=== PATIENT | male | born 1935 | race Caucasian/White ===

== ENCOUNTER 2016-05-13 15:11 | Emergency (ER) | payer OTHER, BC ==
[2016-05-13 15:21] VITALS: BP 120/60; PULSE 75; TEMP 97.6; BMI 26.7
--- NOTE | 2016-05-13 15:30 | PDOC ---
History of Present Illness - General History Source: Patient Exam Limitations: No Limitations <Deonte Johnson - Last Filed: 05/13/16 18:02> - General History Source: Patient Exam Limitations: No Limitations - History of Present Illness Initial Comments: 05/13/16 15:33 The patient is an 81 year old male with a significant past medical history of HTN, HLD, CAD, LA, 3 vessel CABG, pacemaker/defibrillator who presents to the Emergency Department sent by PCP with hematuria for one week. Patient reports his urine has dark red blood with clots. He reports associated groin pain. He states he stopped taking his coumadin, and his urine returned to normal after two days, but once he began taking coumadin again he experienced hematuria again. He reports heavy lifting last week. He reports recent weight loss. He reports cigarette smoking. He denies history of kidney stones. He denies back pain, abdominal pain, dysuria. He denies chest pain, SOB. He denies fever, chills, nausea, vomiting, diarrhea. PCP: Dr. Kana Davis Urologist: Dr. Hernandez Cuellar <Alnana Bermudez A - Last Filed: 05/13/16 18:14> - General Chief Complaint: Hematuria Stated Complaint: hematuria Time Seen by Provider: 05/13/16 15:13 Past History - Past Medical History Cardiac Disorders: Yes (AFIB,LA) GI Disorders: Yes Disorders: Yes HTN: Yes Hypercholesterolemia: Yes - Surgical History Cardiac Surgery: Yes (triple bypass x 2009,defib 2012.) - Psycho/Social/Smoking Cessation Hx Anxiety: No Suicidal Ideation: No Smoking History: Current every day smoker Number of Cigarettes Smoked Daily: 3 Information on smoking cessation initiated: No Substance Use Type: None <Deonte Johnson - Last Filed: 05/13/16 18:02> <Alanna Bermudez - Last Filed: 05/13/16 18:14> - Past Medical History Allergies/Adverse Reactions: Allergies Allergy/AdvReac Type Severity Reaction Status Date / Time No Known Allergies Allergy Verified 05/13/16 15:13 Home Medications: Ambulatory Orders Amiodarone HCl 200 mg PO DAILY 05/13/16 Amlodipine Besylate [Norvasc -] 10 mg PO DAILY 05/13/16 Aspirin [ASA -] 81 mg PO DAILY 05/13/16 Atorvastatin Ca [Lipitor] 40 mg PO HS 05/13/16 Finasteride [Proscar -] 5 mg PO DAILY 05/13/16 Metoprolol Succinate [Toprol Xl] 150 mg PO DAILY 05/13/16 Omeprazole 40 mg PO DAILY 05/13/16 Ramipril 10 mg PO DAILY 05/13/16 Sulfamethoxazole/Trimethoprim [Bactrim Ds -] 1 tab PO BID #20 tablet 05/13/16 Tamsulosin HCl [Flomax] 0.8 mg PO DAILY 05/13/16 Warfarin Sodium [Coumadin] 4 mg PO DAILY 05/13/16 Review of Systems - Review of Systems Able to Perform ROS?: Yes Comments:: 05/13/16 15:33 GENERAL/CONSTITUTIONAL: No fever or chills. No weakness. HEAD, EYES, EARS, NOSE AND THROAT: No change in vision. No ear pain or discharge. No sore throat. CARDIOVASCULAR: No chest pain or shortness of breath. RESPIRATORY: No cough, wheezing, or hemoptysis. GASTROINTESTINAL: No nausea, vomiting, diarrhea or constipation. GENITOURINARY: + hematuria, groin pain. No dysuria, frequency. MUSCULOSKELETAL: No joint or muscle swelling or pain. No neck or back pain. SKIN: No rash NEUROLOGIC: No headache, vertigo, loss of consciousness, or change in strength/ sensation. ENDOCRINE: No increased thirst. No abnormal weight change. HEMATOLOGIC/LYMPHATIC: No anemia, easy bleeding, or history of blood clots. ALLERGIC/IMMUNOLOGIC: No hives or skin allergy. <Alanna Bermudez - Last Filed: 05/13/16 18:14> *Physical Exam - Vital Signs Last Vital Signs Temp Pulse Resp BP Pulse Ox 97.6 F 75 18 120/60 100 05/13/16 15:14 05/13/16 15:14 05/13/16 15:14 05/13/16 15:14 05/13/16 15:14 <Deonte Johnson - Last Filed: 05/13/16 18:02> - Vital Signs Last Vital Signs Temp Pulse Resp BP Pulse Ox 97.6 F 75 18 120/60 100 05/13/16 15:14 05/13/16 15:14 05/13/16 15:14 05/13/16 15:14 05/13/16 15:14 - Physical Exam Comments: 05/13/16 15:34 GENERAL: Awake, alert, and fully oriented, in no acute distress HEAD: No signs of trauma EYES: PERRLA, EOMI, sclera anicteric, conjunctiva clear ENT: Auricles normal inspection, hearing grossly normal, nares patent, oropharynx clear without exudates. Moist mucosa NECK: Normal ROM, supple, no lymphadenopathy, JVD, or masses LUNGS: Breath sounds equal, clear to auscultation bilaterally. No wheezes, and no crackles HEART: Pacemaker. Regular rate and rhythm, normal S1 and S2, no murmurs, rubs or gallops ABDOMEN: Soft, nontender, normoactive bowel sounds. No guarding, no rebound. No masses : uncircumcised, no testicular tenderness, no rash, no drainage EXTREMITIES: Normal range of motion, no edema. No clubbing or cyanosis. No cords, erythema, or tenderness NEUROLOGICAL: Cranial nerves II through XII grossly intact. Normal speech, normal gait SKIN: Warm, Dry, normal turgor, no rashes or lesions noted. <Alanna Bermudez - Last Filed: 05/13/16 18:14> ED Treatment Course - LABORATORY CBC & Chemistry Diagram: 05/13/16 15:40 05/13/16 15:40 <Deonte Johnson - Last Filed: 05/13/16 18:02> - LABORATORY CBC & Chemistry Diagram: 05/13/16 15:40 05/13/16 15:40 - RADIOLOGY Radiograph Interpretation: 05/13/16 17:54 CT of abdomen and pelvis without contrast Reported by: Dr. Isabelle Nuno Impression: There is no evidence of hydroureteronephrosis or ureteral stone, bilaterally. No filling defect within the pelvicalyceal system and ureter, laterally. Mild diffuse thickening of the urinary wall likely due to partial distension. Enlarged prostate gland with a nodular anterior contour causing extrinsic mass effect on the urinary bladder wall for which further evaluation is recommended. Bilateral renal cysts and small left parapelvic renal cysts. Tiny gallstones versus a small sludge layering posteriorly. 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 Old fracture in the right inferior pubic ramus with a healing fracture in the right transverse process of L2. <Alanna Bermudez - Last Filed: 05/13/16 18:14> Medical Decision Making - Medical Decision Making 05/13/16 15:45 A portion of this note was documented by scribe services under my direction. I have reviewed the details of the note, within reason, and agree with the documentation with the following case summary and management plan written by me. Patient treated in the ED. Nursing notes are reviewed and incorporated into the medical decision-making. Vital signs reviewed. Peripheral IV access obtained by the nurse, laboratory studies are drawn and sent, reviewed and interpreted by myself. Vital Signs Temp Pulse Resp BP Pulse Ox 97.6 F 75 18 120/60 100 05/13/16 15:14 05/13/16 15:14 05/13/16 15:14 05/13/16 15:14 05/13/16 15:14 81-year-old male with past medical history of hypertension, hyperlipidemia, coronary disease status post LA, 3 vessel CABG, stents, pacemaker/defibrillator , current smoker presents from Dr. Davis's office for intermittent hematuria for one week. The patient reports hematuria with blood clots. He is currently taking Coumadin for his heart. States that one week ago when he had the hematuria, the patient had stopped taking his Coumadin and notices much improved. However 3 days ago, the patient restart his Coumadin and noted worsening hematuria. He saw his primary care doctor today who sent the patient ER for CAT scan. Patient states he has lost 15 pounds in last several months. Concerns at this time is potential malignancy or neoplasm. We'll perform CT scan of the abdomen pelvis with IV contrast. Also within differential, though probably less likely, is infectious like cystitis, or renal colic. We'll contact patient's primary care doctor once results return. 05/13/16 17:57 CBC, BMP 05/13/16 15:40 05/13/16 15:40 CMP Sodium 132 mmol/L (136-145) L 05/13/16 15:40 Potassium 4.2 mmol/L (3.5-5.1) 05/13/16 15:40 Chloride 102 mmol/L (98-107) 05/13/16 15:40 Carbon Dioxide 26 mmol/L (22-28) 05/13/16 15:40 Anion Gap 4 (8-16) L 05/13/16 15:40 BUN 15 mg/dl (7-18) 05/13/16 15:40 Creatinine 1.3 mg/dl (0.6-1.3) 05/13/16 15:40 Creat Clearance w eGFR 52.85 (>60) 05/13/16 15:40 Random Glucose 134 mg/dl (74-106) H 05/13/16 15:40 Calcium 8.6 mg/dl (8.4-10.2) 05/13/16 15:40 Total Bilirubin 0.5 mg/dl (0.2-1.0) 05/13/16 15:40 AST 31 U/L (10-42) 05/13/16 15:40 ALT 20 U/L (10-40) 05/13/16 15:40 Alkaline Phosphatase 75 U/L (32-92) 05/13/16 15:40 Total Protein 6.5 g/dl (6.4-8.3) 05/13/16 15:40 Albumin 4.0 g/dl (3.5-5.0) 05/13/16 15:40 INR, PTT INR 2.64 (0.82-1.09) H 05/13/16 15:40 Urine Test Results Urine Color Red 05/13/16 15:59 Urine Appearance Bloody 05/13/16 15:59 Urine pH 6.5 (4.5-8) 05/13/16 15:59 Ur Specific [place] >= 1.030 (1.005-1.025) H 05/13/16 15:59 Urine Protein 3+ (NEGATIVE) H 05/13/16 15:59 Urine Glucose (UA) Negative (NEGATIVE) 05/13/16 15:59 Urine Ketones Trace (NEGATIVE) 05/13/16 15:59 Urine Blood 3+ (NEGATIVE) H 05/13/16 15:59 Urine Nitrite Negative (NEGATIVE) 05/13/16 15:59 Urine Bilirubin 1+ (NEGATIVE) H 05/13/16 15:59 Ur Leukocyte Esterase Negative (NEGATIVE) 05/13/16 15:59 Urine RBC Loaded /hpf (0-3) 05/13/16 15:59 Urine WBC 0-2 (3-5) 05/13/16 15:59 Urine Bacteria Moderate /hpf (NEGATIVE) 05/13/16 15:59 05/13/16 17:59 CAT scan reviewed. Mild diffuse thickening of the urinary bladder wall due to partial distention. Enlarged prostate gland with a nodular intercondylar causing extrinsic mass effect on the urinary bladder wall for which further evaluation is recommended. Bilateral renal cysts. The patient otherwise feels asymptomatic. I discussed the case with urologist Dr Cuellar. Requests that I initiate antibiotics for potential prostatitis. He is scheduling an urgent outpatient cystoscopy for the patient. I had discussed the results of the CAT scan to the patient regarding my findings. He agrees that he will follow with his urologist. Return precautions given including lightheadedness. We'll give Bactrim. Patient primary care doctor covering physician Dr. Ge informed of the details. I discussed the physical exam findings, ancillary test results and final diagnoses with the patient. I answered all of the patient's questions. The patient was satisfied with the care received and felt comfortable with the discharge plan and treatment plan. The patient will call their primary care physician within 24 hours to arrange follow-up and will return to the Emergency Department with any new, persistant or worsening symptoms. <Deonte Johnson - Last Filed: 05/13/16 18:02> *DC/Admit/Observation/Transfer - Discharge Dispostion Admit: No <Deonte Johnson - Last Filed: 05/13/16 18:02> - Attestations Scribe Attestion: 05/13/16 15:34 Documentation prepared by Alanna Bermudez, acting as manager medical affairs for Deonte Johnson MD. <Alanna Bermudez - Last Filed: 05/13/16 18:14> Diagnosis at time of Disposition: Hematuria - Discharge Dispostion Disposition: HOME Condition at time of disposition: Fair - Prescriptions Prescriptions: Sulfamethoxazole/Trimethoprim [Bactrim Ds -] 1 tab PO BID #20 tablet - Referrals Referrals: Hernandez Cuellar MD [Staff Physician] - Kana Davis MD [Staff Physician] - - Patient Instructions Printed Discharge Instructions: DI for Hematuria Additional Instructions: Please follow up with Dr. Cuellar. Call tomorrow to schedule an appointment. He will squeeze you in for an earleir appointment. Continue to monitor your INR levels Take the antibiotics (bactrim) every 12 hours your urine. If you feel lightheaded or feel like feinting, please return to the ER for further evaluation.
[2016-05-13 16:12] LABS: BILIRUBIN,TOTAL 0.5 mg/dl (0.2-1.0); CALCIUM 8.6 mg/dl (8.4-10.2); CREATININE 1.3 mg/dl (0.6-1.3); TOT PROT 6.5 g/dl (6.4-8.3)
[2016-05-13 16:14] LABS: INR 2.64 (0.82-1.09)
[2016-05-13 16:28] LABS: BASOPHIL 1.6 % (0-2.0); EOSINOPHIL 4.3 % (0-4.5); MCH 33.1 pg (25.7-33.7); MEAN CELL VOLUME 94.6 fl (80-96); MEAN PLT VOLUME 9.9 fl (7.5-11.1); NEUTROPHILS 70.6 % (42.8-82.8); PLATELET COUNT 186 K/MM3 (134-434); RDW 12.2 % (11.9-15.9); WHITE BLOOD COUNT 9.5 K/mm3 (4.0-10.0)
[2016-05-13 16:29] LABS: PH,URINE 6.5 (4.5-8); URINE BILIRUBIN 1+ (NEGATIVE); URINE GLUCOSE (UA) Negative (NEGATIVE); URINE KETONE Trace (NEGATIVE); URINE LEUK ESTERASE Negative (NEGATIVE); URINE NITRITE Negative (NEGATIVE); URINE UROBILINOGEN 1.0 E.U/dl (0.2-1.0)
[2016-05-13 16:30] LABS: URINE APPEARANCE BLOODY; URINE BLOOD 3+ (NEGATIVE); URINE COLOR RED; URINE PROTEIN 3+ (NEGATIVE)
[2016-05-13 16:35] LABS: URINE BACTERIA MODERATE /hpf (NEGATIVE); URINE RBC LOADED /hpf (0-3); URINE WBC 0-2 (3-5)
[2016-05-13] MEDS ORDERED: SULFAMETHOXAZOLE/TRIMETHOPRIM 800MG/160MG D.S. TABLET PO ONE (17:57)
[2016-05-13] MEDS ORDERED: SULFAMETHOXAZOLE/TRIMETHOPRIM 800MG/160MG D.S. TABLET ONE (18:09)
== END 2016-05-13 18:34 | disposition home or self-care (01) ==
LOC: FER 15:11
DX: R31.9 Hematuria, unspecified (principal); I10 Essential (primary) hypertension; E78.5 Hyperlipidemia, unspecified; I25.10 Atherosclerotic heart disease of native coronary artery without angina pectoris; I25.2 Old myocardial infarction; Z95.1 Presence of aortocoronary bypass graft; Z95.0 Presence of cardiac pacemaker; F17.210 Nicotine dependence, cigarettes, uncomplicated
CPT/HCPCS: 36415; 74177-TC; 80053; 81003; 81015; 85025; 85610; 85730; 86850; 86900; 86901; 87086; 99283-25

== ENCOUNTER 2021-08-19 20:11 | Inpatient (IN) | payer OTHER, BC ==
[2021-08-19 20:47] LABS: BASO % 1.1 % (0-2.0); HEMATOCRIT 24.5 % (35.4-49); HEMOGLOBIN 8.1 GM/dL (11.7-16.9); LYMPH % 0.9 % (8-40); MCHC 33.2 g/dl (32.0-35.9); MEAN CELL VOLUME 96.4 fl (80-96); MEAN PLT VOLUME 9.1 fl (7.5-11.1); MONO % 2.6 % (3.8-10.2); NEUT % 95.4 % (42.8-82.8); PLATELET COUNT 216 10^3/uL (134-434); RBC 2.54 M/mm3 (4.00-5.60); RDW 13.3 % (11.9-15.9); WHITE BLOOD COUNT 26.6 K/mm3 (4.0-10.0)
[2021-08-19 20:57] LABS: ACTIVATED PTT 54.7 SECONDS (25.2-36.5)
[2021-08-19 21:08] LABS: EPI CELLS 20 /uL (0-25.1); HYALINE CASTS 15 /uL (0-3.1); URINE APPEARANCE CLOUDY; URINE BACTERIA 4 /uL (0-1359); URINE BILIRUBIN 2+ (NEGATIVE); URINE COLOR DK YELLOW; URINE GLUCOSE (UA) NEGATIVE (NEGATIVE); URINE KETONE TRACE (NEGATIVE); URINE LEUK ESTERASE TRACE (NEGATIVE); URINE NITRITE NEGATIVE (NEGATIVE); URINE PROTEIN 1+ (NEGATIVE); URINE RBC 51 /uL (0-23.9); URINE WBC 10 /uL (0-25.8)
[2021-08-19 21:08] LABS: CALCIUM 8.6 mg/dL (8.5-10.1)
[2021-08-19 21:09] LABS: ALBUMIN 3.5 g/dl (3.4-5.0); BLOOD UREA NITROGEN 60.4 mg/dL (7-18); MAGNESIUM 2.6 mg/dL (1.8-2.4)
[2021-08-19 21:12] LABS: CREATININE 3.2 mg/dL (0.55-1.3)
[2021-08-19 21:14] LABS: BILIRUBIN,TOTAL 1.7 mg/dL (0.2-1); PROTHROMBIN TIME (PATIENT) 108.7 SEC (9.7-13.0); TOT PROT 6.3 g/dl (6.4-8.2)
[2021-08-19 21:15] LABS: INR 9.24 (0.83-1.09)
[2021-08-19 21:17] LABS: N-TERMINAL BNP 2707.8 pg/ml (5-450)
[2021-08-19 21:31] LABS: ANISOCYTOSIS 1+; MACROCYTOSIS 0
[2021-08-20] MEDS ORDERED: PHYTONADIONE 5 MG TABLET PO ONE (04:00)
[2021-08-20] MEDS ORDERED: LACTATED RINGERS SOLUTION 1,000 ML IV SCH ×2 (04:00→11:34)
[2021-08-20] MEDS ORDERED: VANCOMYCIN 1 GM in D5W (PRE-DOCKED) 1,000 MG/250 ML IVPB SCH (04:10)
[2021-08-20] MEDS ORDERED: PHYTONADIONE 10 MG/1 ML AMP IM ONE (04:36)
[2021-08-20] MEDS ORDERED: PHYTONADIONE 10 MG/1 ML AMP ONE (05:02)
[2021-08-20] MEDS ORDERED: PIPERACILLIN/TAZOB 2.25 GM 2.25 GM/50 ML BAG IVPB ONE ×2 (05:03→10:01)
[2021-08-20] MEDS ORDERED: VANCOMYCIN 1 GRAM (PRE-DOCKED) 1,000 MG/250 ML BAG IVPB ONE (05:03)
[2021-08-20] MEDS: PIPERACILLIN/TAZOB 2.25 GM 2.25 GM in DEXTROSE 5%-WATER - 50 ML IVPB SCH ×2 (05:09→10:21)
[2021-08-20] MEDS ORDERED: ALBUTEROL SO4 2.5/IPRATROPIUM 0.5 INH SOL 3 ML VIAL.NEB. NEB PRN (06:08)
[2021-08-20] MEDS: POLYETHYLENE GLYCOL (HEALTHYLAX) 3350 17 GM PACKET PO SCH ×3 (07:06→22:54)
[2021-08-20 08:00] LABS: HEMATOCRIT 25.4 % (35.4-49); HEMOGLOBIN 8.4 GM/dL (11.7-16.9); MCH 32.3 pg (25.7-33.7); MEAN CELL VOLUME 97.7 fl (80-96); MEAN PLT VOLUME 9.3 fl (7.5-11.1); PLATELET COUNT 252 10^3/uL (134-434); RDW 13.2 % (11.9-15.9)
[2021-08-20] MEDS ORDERED: ALBUTEROL SO4 2.5/IPRATROPIUM 0.5 INH SOL 3 ML VIAL.NEB. NEB ONE ×4 (08:06→11:59)
[2021-08-20] MEDS: INSULIN SLIDING SCALE (NOVOLOG) 1 VIAL SQ SCH ×4 (08:13→22:59)
[2021-08-20 08:17] LABS: WHITE BLOOD COUNT 31.5 K/mm3 (4.0-10.0)
[2021-08-20 08:39] LABS: PROTHROMBIN TIME (PATIENT) 124.9 SEC (9.7-13.0)
[2021-08-20 08:40] LABS: INR 10.6 (0.83-1.09)
[2021-08-20 08:56] LABS: CALCIUM 8.3 mg/dL (8.5-10.1)
[2021-08-20 08:57] LABS: ALBUMIN 3.3 g/dl (3.4-5.0); BLOOD UREA NITROGEN 65.3 mg/dL (7-18); MAGNESIUM 2.7 mg/dL (1.8-2.4)
[2021-08-20 09:00] LABS: CREATININE 3.1 mg/dL (0.55-1.3)
[2021-08-20 09:01] LABS: BILIRUBIN,TOTAL 2.4 mg/dL (0.2-1); TOT PROT 6.3 g/dl (6.4-8.2)
[2021-08-20 09:10] LABS: PHOSPHOROUS 4.6 mg/dL (2.5-4.9)
[2021-08-20 09:29] LABS: ANISOCYTOSIS 0; MACROCYTOSIS 0
[2021-08-20] MEDS ORDERED: BUDESONIDE/FORMETEROL FUMARATE 160/4.5 mcg INHALER IH SCH (10:00)
[2021-08-20] MEDS ORDERED: INSULIN (NOVOLOG) ASPART 100 UNITS/ML 10ML VIAL SQ ONE (10:35)
[2021-08-20] MEDS ORDERED: DEXTROSE 50%-WATER - 25 GM/50 ML VIAL IVPUSH ONE (10:35)
[2021-08-20 11:10] LABS: LACTIC ACID 5.1 mmol/L (0.4-2.0)
[2021-08-20] MEDS ORDERED: INSULIN REGULAR HUMAN 100 UNITS/ML *VIAL IVPUSH ONE (11:10)
[2021-08-20] MEDS ORDERED: LACTATED RINGERS SOLUTION 1,000 ML/1,000 ML INFUS.BAG IV STA (11:35)
[2021-08-20] MEDS ORDERED: DEXTROSE 50%-WATER 25 GM/50 ML DISP.SYRIN ONE (11:59)
[2021-08-20] MEDS ORDERED: INSULIN REGULAR HUMAN 100 UNITS/ML *VIAL ONE (12:30)
[2021-08-20 13:43] LABS: BILIRUBIN,DIRECT 0.7 mg/dL (0.0-0.2)
[2021-08-20 13:46] LABS: BILIRUBIN,TOTAL 2.4 mg/dL (0.2-1)
[2021-08-20] MEDS ORDERED: PHYTONADIONE 10 MG/1 ML AMP IVPB ONE ×2 (14:21→15:30)
[2021-08-20] MEDS ORDERED: PIPERACILLIN/TAZOBACTAM 2.25 GM VIAL IVPB ONE (17:27)
[2021-08-20] MEDS ORDERED: DEXTROSE 5%-WATER - 50 ML IVPB ONE (17:28)
[2021-08-20 17:39] LABS: LACTIC ACID 4.5 mmol/L (0.4-2.0)
[2021-08-20] MEDS ORDERED: PIPERACILLIN/TAZOB 2.25 GM 2.25 GM in DEXTROSE 5%-WATER - 50 ML IVPB SCH (18:00)
[2021-08-20 18:29] LABS: EPI CELLS 24 /uL (0-25.1); HYALINE CASTS 10 /uL (0-3.1); URINE APPEARANCE TURBID; URINE BACTERIA 6 /uL (0-1359); URINE BILIRUBIN 1+ (NEGATIVE); URINE COLOR DK YELLOW; URINE GLUCOSE (UA) NEGATIVE (NEGATIVE); URINE KETONE TRACE (NEGATIVE); URINE LEUK ESTERASE 1+ (NEGATIVE); URINE NITRITE NEGATIVE (NEGATIVE); URINE PROTEIN 1+ (NEGATIVE); URINE RBC 365 /uL (0-23.9); URINE WBC 59 /uL (0-25.8)
[2021-08-20] MEDS: LACTATED RINGERS SOLUTION 1,000 ML IV SCH ×2 (18:46→23:15)
[2021-08-20] MEDS: ALBUTEROL SO4 2.5/IPRATROPIUM 0.5 INH SOL 3 ML VIAL.NEB. NEB SCH ×2 (20:01→23:06)
[2021-08-20] MEDS ORDERED: NOREPINEPHRINE BITARTRATE 4 MG/4 ML ML IV ONE (21:13)
[2021-08-20] MEDS ORDERED: VASOPRESSIN 40 UNITS/100 ML BAG IV SCH (21:15)
[2021-08-20] MEDS: NOREPINEPHRINE BITARTRATE 16,000 MCG in SODIUM CHLORIDE 484 ML IV SCH (22:40)
[2021-08-20] MEDS: CHLORHEXIDINE GLUCONATE 4% CLEANSER FOR DECOLONIZATION TP SCH (23:15)
[2021-08-20] MEDS: MUPIROCIN 2% TOPICAL OINTMENT FOR DECOLONIZATION NS SCH (23:15)
[2021-08-20 23:31] LABS: BASO % 0.1 % (0-2.0); HEMATOCRIT 20.3 % (35.4-49); LYMPH % 2.1 % (8-40); MCH 32.4 pg (25.7-33.7); MCHC 33.5 g/dl (32.0-35.9); MEAN CELL VOLUME 96.7 fl (80-96); MONO % 3.2 % (3.8-10.2); NEUT % 94.6 % (42.8-82.8); PLATELET COUNT 219 10^3/uL (134-434); RDW 13.6 % (11.9-15.9); WHITE BLOOD COUNT 23.7 K/mm3 (4.0-10.0)
[2021-08-20 23:31] LABS: ARTERIAL BLD GAS O2 SATURATION 90.5 % (95-98); ARTERIAL BLOOD GAS BASE EXCESS -6.1 mmol/L (-2-2); ARTERIAL BLOOD GAS PO2 55.6 mmHg (80-100); ARTERIAL BLOOD GAS pH 7.432 (7.350-7.450)
[2021-08-20 23:34] LABS: ALLENS TEST POSITIVE
[2021-08-20 23:40] LABS: HEMOGLOBIN 6.8 GM/dL (11.7-16.9)
[2021-08-20 23:54] LABS: CALCIUM 7.9 mg/dL (8.5-10.1)
[2021-08-20 23:55] LABS: BLOOD UREA NITROGEN 71.2 mg/dL (7-18)
[2021-08-20 23:58] LABS: CREATININE 2.6 mg/dL (0.55-1.3)
[2021-08-20 23:59] LABS: BILIRUBIN,TOTAL 2.1 mg/dL (0.2-1)
[2021-08-21] LABS: TOT PROT 5.2 g/dl (6.4-8.2)
[2021-08-21] MEDS ORDERED: FUROSEMIDE 40 MG/4 ML INJECTABLE VIAL IVPUSH ONE ×2 (00:41→03:10)
[2021-08-21 00:42] LABS: LACTIC ACID 2.7 mmol/L (0.4-2.0)
[2021-08-21 00:43] LABS: ALBUMIN 2.6 g/dl (3.4-5.0)
[2021-08-21] MEDS ORDERED: DEXTROSE 5%-WATER - 50 ML IVPB ONE ×3 (00:52→17:30)
[2021-08-21] MEDS ORDERED: PIPERACILLIN/TAZOBACTAM 2.25 GM VIAL IVPB ONE ×3 (00:52→17:29)
[2021-08-21 00:58] LABS: ANISOCYTOSIS 1+; MACROCYTOSIS 1+
[2021-08-21] MEDS: PIPERACILLIN/TAZOB 2.25 GM 2.25 GM in DEXTROSE 5%-WATER - 50 ML IVPB SCH ×3 (01:04→17:35)
[2021-08-21] MEDS ORDERED: PIPERACILLIN/TAZOB 2.25 GM 2.25 GM in DEXTROSE 5%-WATER - 50 ML IVPB SCH (02:00)
[2021-08-21] MEDS ORDERED: LORazepam 2 MG/ML SDV VIAL IVPUSH ONE ×2 (02:30→02:40)
[2021-08-21 03:27] LABS: ARTERIAL BLOOD GAS BASE EXCESS -6.3 mmol/L (-2-2); ARTERIAL BLOOD GAS PO2 63.8 mmHg (80-100); ARTERIAL BLOOD GAS pH 7.411 (7.350-7.450)
[2021-08-21] MEDS: ALBUTEROL SO4 2.5/IPRATROPIUM 0.5 INH SOL 3 ML VIAL.NEB. NEB SCH ×6 (03:29→23:25)
[2021-08-21 03:45] LABS: ALLENS TEST POSITIVE
[2021-08-21] MEDS ORDERED: VANCOMYCIN 1 GM in D5W (PRE-DOCKED) 1,000 MG/250 ML IVPB SCH (04:45)
[2021-08-21] MEDS: PANTOPRAZOLE SODIUM 40 MG VIAL IVPUSH SCH ×3 (05:48→22:15)
[2021-08-21] MEDS: VASOPRESSIN 40 UNITS/100 ML BAG IV SCH (06:17)
[2021-08-21] MEDS: INSULIN SLIDING SCALE (NOVOLOG) 1 VIAL SQ SCH ×4 (06:21→22:35)
[2021-08-21] MEDS: POLYETHYLENE GLYCOL (HEALTHYLAX) 3350 17 GM PACKET PO SCH ×3 (06:36→22:14)
[2021-08-21] MEDS: HYDROCORTISONE SOD SUCCINATE 100 MG/2 ML VIAL IVPUSH SCH ×3 (07:06→22:11)
[2021-08-21] MEDS: FLUDROCORTISONE ACETATE 0.1 MG TABLET (FP) PO SCH ×2 (07:07→09:04)
[2021-08-21 07:09] LABS: HEMATOCRIT 25.2 % (35.4-49); HEMOGLOBIN 8.5 GM/dL (11.7-16.9); MCH 32.3 pg (25.7-33.7); MCHC 33.8 g/dl (32.0-35.9); MEAN CELL VOLUME 95.6 fl (80-96); MEAN PLT VOLUME 8.9 fl (7.5-11.1); PLATELET COUNT 226 10^3/uL (134-434); RBC 2.63 M/mm3 (4.00-5.60); RDW 13.4 % (11.9-15.9); WHITE BLOOD COUNT 23.6 K/mm3 (4.0-10.0)
[2021-08-21 07:12] LABS: INR 1.03 (0.83-1.09); PROTHROMBIN TIME (PATIENT) 11.8 SEC (9.7-13.0)
[2021-08-21 07:15] LABS: ACTIVATED PTT 24.5 SECONDS (25.2-36.5)
[2021-08-21 07:29] LABS: CALCIUM 7.8 mg/dL (8.5-10.1)
[2021-08-21 07:30] LABS: ALBUMIN 2.8 g/dl (3.4-5.0); BLOOD UREA NITROGEN 72.5 mg/dL (7-18); MAGNESIUM 2.4 mg/dL (1.8-2.4)
[2021-08-21 07:33] LABS: CREATININE 2.6 mg/dL (0.55-1.3); PHOSPHOROUS 3.9 mg/dL (2.5-4.9)
[2021-08-21 07:34] LABS: BILIRUBIN,TOTAL 2.2 mg/dL (0.2-1); TOT PROT 5.5 g/dl (6.4-8.2)
[2021-08-21 08:48] LABS: ANISOCYTOSIS 0; HELMET CELLS 0; HOWELL-JOLLY BODIES 0; MACROCYTOSIS 0; OVALOCYTE 0; ROULEAU 0; SICKELED CELLS 0; TARGET CELLS 0; TEAR DROP CELLS 0; TOXIC GRANULATION 0
[2021-08-21] MEDS: MUPIROCIN 2% TOPICAL OINTMENT FOR DECOLONIZATION NS SCH ×2 (10:05→22:20)
[2021-08-21] MEDS: DEXMEDETOMIDINE IN 0.9 % NACL 400 MCG/100 ML VIAL IVPB SCH (13:04)
[2021-08-21 15:17] VITALS: BMI 22.7
[2021-08-21] MEDS: HEPARIN NA (PORCINE) 5,000 UNITS/ML 1ML VIAL SQ SCH ×2 (15:55→22:18)
[2021-08-21 16:26] LABS: HEMATOCRIT 25.4 % (35.4-49); HEMOGLOBIN 8.5 GM/dL (11.7-16.9); MCH 32.2 pg (25.7-33.7); MCHC 33.7 g/dl (32.0-35.9); MEAN CELL VOLUME 95.5 fl (80-96); MEAN PLT VOLUME 8.5 fl (7.5-11.1); PLATELET COUNT 168 10^3/uL (134-434); RBC 2.65 M/mm3 (4.00-5.60); RDW 13.9 % (11.9-15.9); WHITE BLOOD COUNT 21.6 K/mm3 (4.0-10.0)
[2021-08-21] MEDS ORDERED: VANCOMYCIN 1 GRAM (PRE-DOCKED) 1,000 MG/250 ML BAG IVPB ONE (17:20)
[2021-08-21 19:17] LABS: ANISOCYTOSIS 2+; MACROCYTOSIS 0
[2021-08-21] MEDS: CHLORHEXIDINE GLUCONATE 4% CLEANSER FOR DECOLONIZATION TP SCH (22:15)
[2021-08-21] MEDS: NOREPINEPHRINE BITARTRATE 16,000 MCG in SODIUM CHLORIDE 484 ML IV SCH (22:40)
[2021-08-22] MEDS ORDERED: PIPERACILLIN/TAZOBACTAM 2.25 GM VIAL IVPB ONE ×3 (01:04→21:13)
[2021-08-22] MEDS ORDERED: DEXTROSE 5%-WATER - 50 ML IVPB ONE ×3 (01:05→21:13)
[2021-08-22] MEDS: PIPERACILLIN/TAZOB 2.25 GM 2.25 GM in DEXTROSE 5%-WATER - 50 ML IVPB SCH ×3 (01:07→17:43)
[2021-08-22] MEDS: DEXMEDETOMIDINE IN 0.9 % NACL 400 MCG/100 ML VIAL IVPB SCH ×2 (02:08→12:12)
[2021-08-22] MEDS: HYDROCORTISONE SOD SUCCINATE 100 MG/2 ML VIAL IVPUSH SCH ×4 (02:09→21:15)
[2021-08-22] MEDS: ALBUTEROL SO4 2.5/IPRATROPIUM 0.5 INH SOL 3 ML VIAL.NEB. NEB SCH ×6 (04:20→23:45)
[2021-08-22] MEDS: VASOPRESSIN 40 UNITS/100 ML BAG IV SCH (06:04)
[2021-08-22] MEDS: POLYETHYLENE GLYCOL (HEALTHYLAX) 3350 17 GM PACKET PO SCH ×3 (06:05→21:16)
[2021-08-22] MEDS: INSULIN SLIDING SCALE (NOVOLOG) 1 VIAL SQ SCH ×4 (06:05→21:17)
[2021-08-22] MEDS: HEPARIN NA (PORCINE) 5,000 UNITS/ML 1ML VIAL SQ SCH ×3 (06:06→21:16)
[2021-08-22 06:41] LABS: HEMATOCRIT 23.5 % (35.4-49); HEMOGLOBIN 8.1 GM/dL (11.7-16.9); MCH 33.1 pg (25.7-33.7); MCHC 34.4 g/dl (32.0-35.9); MEAN CELL VOLUME 96.3 fl (80-96); MEAN PLT VOLUME 8.5 fl (7.5-11.1); PLATELET COUNT 145 10^3/uL (134-434); RBC 2.44 M/mm3 (4.00-5.60); RDW 14.1 % (11.9-15.9); WHITE BLOOD COUNT 18.9 K/mm3 (4.0-10.0)
[2021-08-22 07:06] LABS: ALBUMIN 2.7 g/dl (3.4-5.0); BLOOD UREA NITROGEN 63.6 mg/dL (7-18); MAGNESIUM 2.7 mg/dL (1.8-2.4)
[2021-08-22 07:09] LABS: CREATININE 1.8 mg/dL (0.55-1.3); PHOSPHOROUS 3.3 mg/dL (2.5-4.9)
[2021-08-22 07:10] LABS: TOT PROT 5.6 g/dl (6.4-8.2)
[2021-08-22 07:11] LABS: BILIRUBIN,TOTAL 1.5 mg/dL (0.2-1)
[2021-08-22 09:36] LABS: ANISOCYTOSIS 0; MACROCYTOSIS 0
[2021-08-22] MEDS: MUPIROCIN 2% TOPICAL OINTMENT FOR DECOLONIZATION NS SCH ×2 (10:12→21:15)
[2021-08-22] MEDS: PANTOPRAZOLE SODIUM 40 MG VIAL IVPUSH SCH ×2 (10:12→21:17)
[2021-08-22] MEDS: FLUDROCORTISONE ACETATE 0.1 MG TABLET (FP) PO SCH (10:12)
[2021-08-22] MEDS ORDERED: KCL 10 MEQ IVPB 10 MEQ/100 ML INFUS.BAG IVPB SCH (10:45)
[2021-08-22] MEDS ORDERED: METOPROLOL TARTRATE 5 MG/5 ML VIAL IVPUSH ONE ×3 (12:00→16:55)
[2021-08-22 13:04] LABS: INR 0.89 (0.83-1.09); PROTHROMBIN TIME (PATIENT) 10.2 SEC (9.7-13.0)
[2021-08-22] MEDS: CHLORHEXIDINE GLUCONATE 4% CLEANSER FOR DECOLONIZATION TP SCH (21:16)
[2021-08-23] MEDS: PIPERACILLIN/TAZOB 2.25 GM 2.25 GM in DEXTROSE 5%-WATER - 50 ML IVPB SCH ×3 (01:22→17:14)
[2021-08-23] MEDS: NOREPINEPHRINE BITARTRATE 16,000 MCG in SODIUM CHLORIDE 484 ML IV SCH ×3 (01:27→23:58)
[2021-08-23] MEDS: HYDROCORTISONE SOD SUCCINATE 100 MG/2 ML VIAL IVPUSH SCH ×4 (02:02→22:07)
[2021-08-23] MEDS: ALBUTEROL SO4 2.5/IPRATROPIUM 0.5 INH SOL 3 ML VIAL.NEB. NEB SCH ×2 (04:00→07:55)
[2021-08-23] MEDS: VASOPRESSIN 40 UNITS/100 ML BAG IV SCH (05:50)
[2021-08-23] MEDS: POLYETHYLENE GLYCOL (HEALTHYLAX) 3350 17 GM PACKET PO SCH ×3 (06:06→22:08)
[2021-08-23] MEDS: INSULIN SLIDING SCALE (NOVOLOG) 1 VIAL SQ SCH ×4 (06:06→22:07)
[2021-08-23] MEDS: HEPARIN NA (PORCINE) 5,000 UNITS/ML 1ML VIAL SQ SCH ×3 (06:07→22:07)
[2021-08-23 07:26] LABS: HEMATOCRIT 25.3 % (35.4-49); HEMOGLOBIN 8.3 GM/dL (11.7-16.9); MCH 32.2 pg (25.7-33.7); MCHC 32.9 g/dl (32.0-35.9); MEAN CELL VOLUME 97.9 fl (80-96); MEAN PLT VOLUME 8.5 fl (7.5-11.1); PLATELET COUNT 150 10^3/uL (134-434); RBC 2.59 M/mm3 (4.00-5.60); RDW 14.4 % (11.9-15.9); WHITE BLOOD COUNT 15.9 K/mm3 (4.0-10.0)
[2021-08-23 07:52] LABS: BLOOD UREA NITROGEN 54.8 mg/dL (7-18); CALCIUM 8.2 mg/dL (8.5-10.1); MAGNESIUM 2.7 mg/dL (1.8-2.4)
[2021-08-23 07:53] LABS: ALBUMIN 2.5 g/dl (3.4-5.0)
[2021-08-23 07:55] LABS: PHOSPHOROUS 2.6 mg/dL (2.5-4.9)
[2021-08-23 07:56] LABS: CREATININE 1.5 mg/dL (0.55-1.3)
[2021-08-23 07:57] LABS: BILIRUBIN,TOTAL 1.5 mg/dL (0.2-1); TOT PROT 5.7 g/dl (6.4-8.2)
[2021-08-23 08:03] LABS: INR 0.94 (0.83-1.09); PROTHROMBIN TIME (PATIENT) 10.8 SEC (9.7-13.0)
[2021-08-23 08:06] LABS: ACTIVATED PTT 24.3 SECONDS (25.2-36.5)
[2021-08-23] MEDS ORDERED: LACTATED RINGERS SOLUTION 1000 ML INFUS.BAG IV ONE (08:33)
[2021-08-23] MEDS ORDERED: PIPERACILLIN/TAZOBACTAM 2.25 GM VIAL IVPB ONE ×2 (09:15→17:11)
[2021-08-23] MEDS ORDERED: DEXTROSE 5%-WATER - 50 ML IVPB ONE ×2 (09:16→17:11)
[2021-08-23 09:27] LABS: ANISOCYTOSIS 0; MACROCYTOSIS 0
[2021-08-23] MEDS: MUPIROCIN 2% TOPICAL OINTMENT FOR DECOLONIZATION NS SCH ×2 (09:28→22:30)
[2021-08-23] MEDS: PANTOPRAZOLE SODIUM 40 MG VIAL IVPUSH SCH ×2 (09:28→22:07)
[2021-08-23] MEDS ORDERED: ALBUTEROL SO4 2.5/IPRATROPIUM 0.5 INH SOL 3 ML VIAL.NEB. NEB PRN (10:30)
[2021-08-23] MEDS: FLUDROCORTISONE ACETATE 0.1 MG TABLET (FP) PO SCH (10:33)
[2021-08-23 11:40] LABS: ARTERIAL BLD GAS O2 SATURATION 93.4 % (95-98); ARTERIAL BLOOD GAS BASE EXCESS -4.8 mmol/L (-2-2); ARTERIAL BLOOD GAS PO2 63.8 mmHg (80-100); ARTERIAL BLOOD GAS pH 7.432 (7.350-7.450)
[2021-08-23 11:42] LABS: ALLENS TEST POSITIVE
[2021-08-23] MEDS: DEXMEDETOMIDINE IN 0.9 % NACL 400 MCG/100 ML VIAL IVPB SCH ×2 (12:08→21:30)
[2021-08-23] MEDS: AMINO ACIDS 4.25%/D5W 1,000 ML IV SCH (14:41)
[2021-08-23] MEDS: CHLORHEXIDINE GLUCONATE 4% CLEANSER FOR DECOLONIZATION TP SCH (22:07)
[2021-08-24] MEDS ORDERED: PIPERACILLIN/TAZOBACTAM 2.25 GM VIAL IVPB ONE ×3 (02:52→17:56)
[2021-08-24] MEDS ORDERED: DEXTROSE 5%-WATER - 50 ML IVPB ONE ×3 (02:52→17:56)
[2021-08-24] MEDS: HYDROCORTISONE SOD SUCCINATE 100 MG/2 ML VIAL IVPUSH SCH ×2 (02:57→10:46)
[2021-08-24] MEDS: PIPERACILLIN/TAZOB 2.25 GM 2.25 GM in DEXTROSE 5%-WATER - 50 ML IVPB SCH ×3 (02:57→18:07)
[2021-08-24 05:54] LABS: ARTERIAL BLD GAS O2 SATURATION 97.6 % (95-98); ARTERIAL BLOOD GAS BASE EXCESS -4.3 mmol/L (-2-2); ARTERIAL BLOOD GAS PO2 96.8 mmHg (80-100); ARTERIAL BLOOD GAS pH 7.424 (7.350-7.450)
[2021-08-24 05:57] LABS: ALLENS TEST POSITIVE; VENT MODE PSV
[2021-08-24 05:58] LABS: VENT RATE 12
[2021-08-24] MEDS: VASOPRESSIN 40 UNITS/100 ML BAG IV SCH (06:35)
[2021-08-24] MEDS: POLYETHYLENE GLYCOL (HEALTHYLAX) 3350 17 GM PACKET PO SCH ×3 (06:36→21:01)
[2021-08-24] MEDS: INSULIN SLIDING SCALE (NOVOLOG) 1 VIAL SQ SCH ×4 (06:36→21:37)
[2021-08-24] MEDS: HEPARIN NA (PORCINE) 5,000 UNITS/ML 1ML VIAL SQ SCH ×3 (06:36→21:37)
[2021-08-24 07:02] LABS: HEMATOCRIT 23.4 % (35.4-49); HEMOGLOBIN 7.7 GM/dL (11.7-16.9); MCH 32.7 pg (25.7-33.7); MEAN CELL VOLUME 98.9 fl (80-96); MEAN PLT VOLUME 8.6 fl (7.5-11.1); PLATELET COUNT 142 10^3/uL (134-434); RBC 2.37 M/mm3 (4.00-5.60); RDW 14.8 % (11.9-15.9); WHITE BLOOD COUNT 16.3 K/mm3 (4.0-10.0)
[2021-08-24 07:21] LABS: MAGNESIUM 2.7 mg/dL (1.8-2.4)
[2021-08-24 07:23] LABS: ALBUMIN 2.3 g/dl (3.4-5.0)
[2021-08-24 07:25] LABS: CREATININE 1.5 mg/dL (0.55-1.3)
[2021-08-24 07:26] LABS: PHOSPHOROUS 2.4 mg/dL (2.5-4.9); TOT PROT 5.3 g/dl (6.4-8.2)
[2021-08-24 07:27] LABS: BILIRUBIN,TOTAL 1.1 mg/dL (0.2-1)
[2021-08-24 10:31] LABS: ANISOCYTOSIS 2+; MACROCYTOSIS 0
[2021-08-24] MEDS: PANTOPRAZOLE SODIUM 40 MG VIAL IVPUSH SCH ×2 (10:47→21:37)
[2021-08-24] MEDS: MUPIROCIN 2% TOPICAL OINTMENT FOR DECOLONIZATION NS SCH ×2 (10:47→21:00)
[2021-08-24] MEDS: DEXMEDETOMIDINE IN 0.9 % NACL 400 MCG/100 ML VIAL IVPB SCH ×2 (11:00→21:01)
[2021-08-24] MEDS ORDERED: PHENobarbital SODIUM 65 MG/1 ML VIAL IVPUSH STA (12:13)
[2021-08-24] MEDS: AMINO ACIDS 4.25%/D5W 1,000 ML IV SCH (13:29)
[2021-08-24] MEDS ORDERED: MAGNESIUM SULF 50% (8.12 MEQ/2 ML-1 GM VIAL) IVPB STA (18:04)
[2021-08-24] MEDS ORDERED: MAGNESIUM 1GM/D5W 100ML - 100 ML IVPB IVPB STA (18:38)
[2021-08-24] MEDS ORDERED: SODIUM CHLORIDE 0.9% 500 ML INFUS.BAG IV ONE (20:41)
[2021-08-24] MEDS ORDERED: SODIUM CHLORIDE 1,000 ML IV SCH (20:45)
[2021-08-24] MEDS: CHLORHEXIDINE GLUCONATE 4% CLEANSER FOR DECOLONIZATION TP SCH (21:01)
[2021-08-25] MEDS ORDERED: PIPERACILLIN/TAZOBACTAM 2.25 GM VIAL IVPB ONE ×3 (02:34→17:48)
[2021-08-25] MEDS ORDERED: DEXTROSE 5%-WATER - 50 ML IVPB ONE ×3 (02:34→17:49)
[2021-08-25] MEDS: PIPERACILLIN/TAZOB 2.25 GM 2.25 GM in DEXTROSE 5%-WATER - 50 ML IVPB SCH ×3 (02:48→17:50)
[2021-08-25] MEDS: DEXMEDETOMIDINE IN 0.9 % NACL 400 MCG/100 ML VIAL IVPB SCH ×2 (02:49→14:54)
[2021-08-25] MEDS: POLYETHYLENE GLYCOL (HEALTHYLAX) 3350 17 GM PACKET PO SCH ×3 (07:01→21:55)
[2021-08-25] MEDS: INSULIN SLIDING SCALE (NOVOLOG) 1 VIAL SQ SCH ×4 (07:01→21:56)
[2021-08-25] MEDS: HEPARIN NA (PORCINE) 5,000 UNITS/ML 1ML VIAL SQ SCH ×3 (07:05→21:55)
[2021-08-25 07:13] LABS: HEMATOCRIT 25.4 % (35.4-49); HEMOGLOBIN 8.5 GM/dL (11.7-16.9); MCH 33.4 pg (25.7-33.7); MCHC 33.6 g/dl (32.0-35.9); MEAN CELL VOLUME 99.6 fl (80-96); MEAN PLT VOLUME 8.5 fl (7.5-11.1); PLATELET COUNT 138 10^3/uL (134-434); RBC 2.55 M/mm3 (4.00-5.60); WHITE BLOOD COUNT 18.8 K/mm3 (4.0-10.0)
[2021-08-25 07:20] LABS: CALCIUM 8.3 mg/dL (8.5-10.1)
[2021-08-25 07:21] LABS: BLOOD UREA NITROGEN 58.2 mg/dL (7-18); MAGNESIUM 2.6 mg/dL (1.8-2.4)
[2021-08-25 07:24] LABS: CREATININE 1.3 mg/dL (0.55-1.3)
[2021-08-25] MEDS: PANTOPRAZOLE SODIUM 40 MG VIAL IVPUSH SCH ×2 (09:21→21:55)
[2021-08-25] MEDS: MUPIROCIN 2% TOPICAL OINTMENT FOR DECOLONIZATION NS SCH (09:21)
[2021-08-25] MEDS ORDERED: ALBUTEROL SO4 0.083% IH SOL 2.5 MG/3 ML VIAL.NEB. NEB STA ×2 (10:06→10:09)
[2021-08-25] MEDS: AMINO ACIDS 4.25%/D5W 1,000 ML IV SCH ×2 (11:16→14:50)
[2021-08-25] MEDS: D5-1/2NS+40 MEQ KCL - 40 MEQ/1,000 ML INFUS.BAG IV SCH (12:14)
[2021-08-25] MEDS: CHLORHEXIDINE GLUCONATE 4% CLEANSER FOR DECOLONIZATION TP SCH (21:55)
[2021-08-25] MEDS: ARTIFICIAL TEARS (POLYVINYL ALCOHOL) OPTH DROPS OU SCH (21:55)
[2021-08-26] MEDS ORDERED: PIPERACILLIN/TAZOBACTAM 2.25 GM VIAL IVPB ONE ×3 (01:45→16:59)
[2021-08-26] MEDS ORDERED: DEXTROSE 5%-WATER - 50 ML IVPB ONE ×3 (01:45→16:59)
[2021-08-26] MEDS: PIPERACILLIN/TAZOB 2.25 GM 2.25 GM in DEXTROSE 5%-WATER - 50 ML IVPB SCH ×3 (01:53→16:59)
[2021-08-26] MEDS: POLYETHYLENE GLYCOL (HEALTHYLAX) 3350 17 GM PACKET PO SCH ×3 (06:36→21:32)
[2021-08-26] MEDS: HEPARIN NA (PORCINE) 5,000 UNITS/ML 1ML VIAL SQ SCH ×3 (07:03→21:32)
[2021-08-26] MEDS: INSULIN SLIDING SCALE (NOVOLOG) 1 VIAL SQ SCH ×4 (07:03→21:31)
[2021-08-26] MEDS: AMINO ACIDS 4.25%/D5W 1,000 ML IV SCH ×2 (07:03→18:44)
[2021-08-26] MEDS: D5-1/2NS+40 MEQ KCL - 40 MEQ/1,000 ML INFUS.BAG IV SCH ×2 (07:04→18:43)
[2021-08-26] MEDS: PANTOPRAZOLE SODIUM 40 MG VIAL IVPUSH SCH ×2 (09:00→21:32)
[2021-08-26] MEDS: ARTIFICIAL TEARS (POLYVINYL ALCOHOL) OPTH DROPS OU SCH ×3 (10:20→21:32)
[2021-08-26] MEDS: DEXMEDETOMIDINE IN 0.9 % NACL 400 MCG/100 ML VIAL IVPB SCH (13:38)
[2021-08-26] MEDS: POTASSIUM CHLORIDE 20 MEQ in AMINO ACIDS 4.25%/D5W 1,000 ML IV SCH (16:44)
[2021-08-26] MEDS: CHLORHEXIDINE GLUCONATE 4% CLEANSER FOR DECOLONIZATION TP SCH (21:32)
[2021-08-27] MEDS ORDERED: PIPERACILLIN/TAZOBACTAM 2.25 GM VIAL IVPB ONE ×3 (00:25→17:11)
[2021-08-27] MEDS ORDERED: DEXTROSE 5%-WATER - 50 ML IVPB ONE ×3 (00:25→17:11)
[2021-08-27] MEDS: PIPERACILLIN/TAZOB 2.25 GM 2.25 GM in DEXTROSE 5%-WATER - 50 ML IVPB SCH ×3 (01:41→17:18)
[2021-08-27] MEDS: HEPARIN NA (PORCINE) 5,000 UNITS/ML 1ML VIAL SQ SCH ×3 (05:08→21:30)
[2021-08-27] MEDS: POLYETHYLENE GLYCOL (HEALTHYLAX) 3350 17 GM PACKET PO SCH (05:09)
[2021-08-27] MEDS: INSULIN SLIDING SCALE (NOVOLOG) 1 VIAL SQ SCH ×4 (06:22→21:30)
[2021-08-27 07:25] LABS: HEMATOCRIT 30.1 % (35.4-49); HEMOGLOBIN 9.6 GM/dL (11.7-16.9); MCHC 31.9 g/dl (32.0-35.9); MEAN CELL VOLUME 103.3 fl (80-96); MEAN PLT VOLUME 9.5 fl (7.5-11.1); PLATELET COUNT 164 10^3/uL (134-434); RBC 2.91 M/mm3 (4.00-5.60); RDW 17.1 % (11.9-15.9)
[2021-08-27 08:18] LABS: ALBUMIN 2.4 g/dl (3.4-5.0); CALCIUM 8.3 mg/dL (8.5-10.1)
[2021-08-27 08:19] LABS: BLOOD UREA NITROGEN 61.7 mg/dL (7-18); MAGNESIUM 2.5 mg/dL (1.8-2.4)
[2021-08-27 08:21] LABS: CREATININE 1.5 mg/dL (0.55-1.3); PHOSPHOROUS 2.5 mg/dL (2.5-4.9)
[2021-08-27 08:22] LABS: BILIRUBIN,TOTAL 0.8 mg/dL (0.2-1); TOT PROT 5.7 g/dl (6.4-8.2)
[2021-08-27 08:50] LABS: ANISOCYTOSIS 1+; MACROCYTOSIS 1+
[2021-08-27] MEDS: PANTOPRAZOLE SODIUM 40 MG VIAL IVPUSH SCH ×2 (09:58→21:30)
[2021-08-27] MEDS: ARTIFICIAL TEARS (POLYVINYL ALCOHOL) OPTH DROPS OU SCH ×2 (10:01→21:30)
[2021-08-27] MEDS ORDERED: NOREPINEPHRINE BITARTRATE 16,000 MCG in SODIUM CHLORIDE 484 ML IV SCH ×2 (12:15→21:20)
[2021-08-27] MEDS ORDERED: LACTATED RINGERS SOLUTION 1,000 ML/1,000 ML INFUS.BAG IV SCH ×2 (12:30→15:03)
[2021-08-27] MEDS ORDERED: FENTANYL NS IVPB 500 MCG/100 ML BAG IVPB ONE (13:52)
[2021-08-27 13:56] LABS: ARTERIAL BLD GAS O2 SATURATION 90.2 % (95-98); ARTERIAL BLOOD GAS BASE EXCESS -7.2 mmol/L (-2-2); ARTERIAL BLOOD GAS PO2 76.6 mmHg (80-100)
[2021-08-27] MEDS: FENTANYL NS IVPB 500 MCG/100 ML BAG IVPB SCH (13:56)
[2021-08-27 13:58] LABS: ALLENS TEST POSITIVE; VENT MODE AC; VENT RATE 12
[2021-08-27 13:59] LABS: ARTERIAL BLOOD GAS pH 7.129 (7.350-7.450)
[2021-08-27] MEDS ORDERED: PROPOFOL 1,000,000 MCG/100 ML VIAL IVPB SCH (14:00)
[2021-08-27] MEDS ORDERED: LACTATED RINGERS SOLUTION 1000 ML INFUS.BAG IV ONE (16:19)
[2021-08-27] MEDS: DEXMEDETOMIDINE IN 0.9 % NACL 400 MCG/100 ML VIAL IVPB SCH (17:08)
[2021-08-27 17:22] LABS: ARTERIAL BLD GAS O2 SATURATION 95.1 % (95-98); ARTERIAL BLOOD GAS BASE EXCESS -10.4 mmol/L (-2-2); ARTERIAL BLOOD GAS PO2 96.4 mmHg (80-100)
[2021-08-27 17:38] LABS: ALLENS TEST POSITIVE
[2021-08-27 17:39] LABS: VENT MODE A/C; VENT RATE 18
[2021-08-27 17:40] LABS: ARTERIAL BLOOD GAS pH 7.143 (7.350-7.450)
[2021-08-27] MEDS: NOREPINEPHRINE BITARTRATE 16,000 MCG in SODIUM CHLORIDE 16,000 MCG/500 ML INFUS.BAG IV SCH (21:00)
[2021-08-27] MEDS: VASOPRESSIN 40 UNITS/100 ML BAG IV SCH (21:28)
[2021-08-27] MEDS: CHLORHEXIDINE GLUCONATE 4% CLEANSER FOR DECOLONIZATION TP SCH (21:30)
[2021-08-28] MEDS ORDERED: PIPERACILLIN/TAZOBACTAM 2.25 GM VIAL IVPB ONE ×3 (02:38→17:43)
[2021-08-28] MEDS ORDERED: DEXTROSE 5%-WATER - 50 ML IVPB ONE ×3 (02:38→17:43)
[2021-08-28] MEDS: PIPERACILLIN/TAZOB 2.25 GM 2.25 GM in DEXTROSE 5%-WATER - 50 ML IVPB SCH ×3 (02:40→18:26)
[2021-08-28 05:44] LABS: ARTERIAL BLD GAS O2 SATURATION 98.2 % (95-98); ARTERIAL BLOOD GAS BASE EXCESS -12.4 mmol/L (-2-2); ARTERIAL BLOOD GAS PO2 151.3 mmHg (80-100); ARTERIAL BLOOD GAS pH 7.126 (7.350-7.450)
[2021-08-28 05:47] LABS: ALLENS TEST POSITIVE
[2021-08-28 05:48] LABS: VENT MODE A/C; VENT RATE 24
[2021-08-28] MEDS: INSULIN SLIDING SCALE (NOVOLOG) 1 VIAL SQ SCH ×4 (06:10→21:57)
[2021-08-28] MEDS: HEPARIN NA (PORCINE) 5,000 UNITS/ML 1ML VIAL SQ SCH ×3 (06:10→21:32)
[2021-08-28 08:05] LABS: HEMATOCRIT 28.3 % (35.4-49); HEMOGLOBIN 8.7 GM/dL (11.7-16.9); MCH 32.7 pg (25.7-33.7); MCHC 30.7 g/dl (32.0-35.9); MEAN CELL VOLUME 106.7 fl (80-96); MEAN PLT VOLUME 9.9 fl (7.5-11.1); PLATELET COUNT 189 10^3/uL (134-434); RBC 2.66 M/mm3 (4.00-5.60); RDW 18.7 % (11.9-15.9)
[2021-08-28] MEDS ORDERED: SODIUM BICARBONATE 8.4% - 100 ML ONE (08:11)
[2021-08-28] MEDS ORDERED: SODIUM BICARBONATE 8.4% 50 MEQ/50 ML VIAL IVPB ONE (08:15)
[2021-08-28] MEDS ORDERED: SODIUM BICARBONATE 8.4% 50 MEQ/50 ML VIAL IVPUSH ONE (08:15)
[2021-08-28 08:42] LABS: WHITE BLOOD COUNT 37.7 K/mm3 (4.0-10.0)
[2021-08-28 08:53] LABS: ANISOCYTOSIS 2+; MACROCYTOSIS 2+
[2021-08-28] MEDS ORDERED: SODIUM CHLORIDE 0.45% 1,000 ML with SODIUM BICARBONATE 8.4% - 75 MEQ IV SCH (09:00)
[2021-08-28 09:11] LABS: ALBUMIN 2.1 g/dl (3.4-5.0); BLOOD UREA NITROGEN 86.5 mg/dL (7-18); CALCIUM 7.5 mg/dL (8.5-10.1); MAGNESIUM 2.4 mg/dL (1.8-2.4)
[2021-08-28 09:13] LABS: CREATININE 2.9 mg/dL (0.55-1.3)
[2021-08-28 09:15] LABS: BILIRUBIN,TOTAL 0.7 mg/dL (0.2-1); TOT PROT 5.2 g/dl (6.4-8.2)
[2021-08-28] MEDS: PANTOPRAZOLE SODIUM 40 MG VIAL IVPUSH SCH ×2 (10:23→21:32)
[2021-08-28] MEDS: ARTIFICIAL TEARS (POLYVINYL ALCOHOL) OPTH DROPS OU SCH ×2 (10:25→21:57)
[2021-08-28] MEDS: DEXMEDETOMIDINE IN 0.9 % NACL 400 MCG/100 ML VIAL IVPB SCH (11:00)
[2021-08-28] MEDS: VASOPRESSIN 40 UNITS/100 ML BAG IV SCH ×2 (11:09→21:31)
[2021-08-28] MEDS ORDERED: SODIUM ZIRCONIUM CYCLOSILICATE (LOKELMA) 5 GM PACKET NGT SCH (13:30)
[2021-08-28] MEDS: SODIUM CHLORIDE 0.45% 1,000 ML IV SCH (13:31)
[2021-08-28] MEDS: FENTANYL NS IVPB 500 MCG/100 ML BAG IVPB SCH (14:02)
[2021-08-28] MEDS: CHLORHEXIDINE GLUCONATE 4% CLEANSER FOR DECOLONIZATION TP SCH (21:32)
[2021-08-29] MEDS ORDERED: DEXTROSE 5%-WATER - 50 ML IVPB ONE ×3 (01:12→17:09)
[2021-08-29] MEDS ORDERED: PIPERACILLIN/TAZOBACTAM 2.25 GM VIAL IVPB ONE ×3 (01:12→17:09)
[2021-08-29] MEDS: PIPERACILLIN/TAZOB 2.25 GM 2.25 GM in DEXTROSE 5%-WATER - 50 ML IVPB SCH ×3 (02:54→17:20)
[2021-08-29] MEDS: NOREPINEPHRINE BITARTRATE 16,000 MCG in SODIUM CHLORIDE 16,000 MCG/500 ML INFUS.BAG IV SCH ×2 (02:54→11:45)
[2021-08-29] MEDS: HEPARIN NA (PORCINE) 5,000 UNITS/ML 1ML VIAL SQ SCH ×3 (06:29→21:49)
[2021-08-29] MEDS: INSULIN SLIDING SCALE (NOVOLOG) 1 VIAL SQ SCH ×4 (06:34→21:50)
[2021-08-29 07:54] LABS: HEMATOCRIT 24.9 % (35.4-49); HEMOGLOBIN 7.8 GM/dL (11.7-16.9); MCH 32.6 pg (25.7-33.7); MCHC 31.3 g/dl (32.0-35.9); MEAN PLT VOLUME 9.6 fl (7.5-11.1); PLATELET COUNT 200 10^3/uL (134-434); RBC 2.39 M/mm3 (4.00-5.60); RDW 16.8 % (11.9-15.9); WHITE BLOOD COUNT 24.6 K/mm3 (4.0-10.0)
[2021-08-29 08:23] LABS: CHLORIDE 119 mmol/L (98-107); SODIUM 149 mmol/L (136-145)
[2021-08-29 08:37] LABS: ANION GAP 12 MMOL/L (8-16); CO2 18 mmol/L (21-32); GLUCOSE,RANDOM 188 mg/dL (74-106); MAGNESIUM 2.3 mg/dL (1.8-2.4)
[2021-08-29 08:38] LABS: SGOT/AST 181 U/L (15-37); SGPT/ALT 66 U/L (13-61)
[2021-08-29 08:40] LABS: BILIRUBIN,TOTAL 0.6 mg/dL (0.2-1); CREATININE 4.2 mg/dL (0.55-1.3); PHOSPHOROUS 7.2 mg/dL (2.5-4.9)
[2021-08-29 08:46] LABS: ALK PHOS 116 U/L (45-117); BLOOD UREA NITROGEN 116.8 mg/dL (7-18); CALCIUM 6.9 mg/dL (8.5-10.1)
[2021-08-29 08:57] LABS: ANISOCYTOSIS 1+; MACROCYTOSIS 1+
[2021-08-29] MEDS: PANTOPRAZOLE SODIUM 40 MG VIAL IVPUSH SCH ×2 (09:33→21:50)
[2021-08-29] MEDS: ARTIFICIAL TEARS (POLYVINYL ALCOHOL) OPTH DROPS OU SCH ×2 (09:34→21:50)
[2021-08-29] MEDS ORDERED: SODIUM ZIRCONIUM CYCLOSILICATE (LOKELMA) 5 GM PACKET PO SCH (10:00)
[2021-08-29 14:57] LABS: EPI CELLS >36 /uL (0-25.1); HYALINE CASTS 3 /uL (0-3.1); URINE APPEARANCE TURBID; URINE BILIRUBIN 1+ (NEGATIVE); URINE COLOR DK YELLOW; URINE GLUCOSE (UA) TRACE (NEGATIVE); URINE KETONE TRACE (NEGATIVE); URINE LEUK ESTERASE TRACE (NEGATIVE); URINE NITRITE NEGATIVE (NEGATIVE); URINE PROTEIN 2+ (NEGATIVE); URINE RBC 31 /uL (0-23.9); URINE WBC 166 /uL (0-25.8)
[2021-08-29 15:35] LABS: URINE BACTERIA 7.6 /uL (0-1359); URINE CRYSTALS NEGATIVE /hpf
[2021-08-29] MEDS: SODIUM CHLORIDE 0.45% 1,000 ML IV SCH ×2 (16:10→21:49)
[2021-08-29] MEDS: DEXMEDETOMIDINE IN 0.9 % NACL 400 MCG/100 ML VIAL IVPB SCH (17:21)
[2021-08-29] MEDS: MIDAZOLAM IN 0.9 % SOD.CHLORID 100 MG/100 ML PLAST..BAG IVPB SCH (17:22)
[2021-08-29] MEDS: VASOPRESSIN 40 UNITS/100 ML BAG IV SCH ×2 (17:22→21:49)
[2021-08-29] MEDS: SODIUM ZIRCONIUM CYCLOSILICATE (LOKELMA) 5 GM PACKET PO SCH (21:49)
[2021-08-29] MEDS: CHLORHEXIDINE GLUCONATE 4% CLEANSER FOR DECOLONIZATION TP SCH (21:49)
[2021-08-30] MEDS ORDERED: DEXTROSE 5%-WATER - 50 ML IVPB ONE ×3 (00:03→17:25)
[2021-08-30] MEDS ORDERED: PIPERACILLIN/TAZOBACTAM 2.25 GM VIAL IVPB ONE ×3 (00:03→17:24)
[2021-08-30] MEDS: NOREPINEPHRINE BITARTRATE 16,000 MCG in SODIUM CHLORIDE 16,000 MCG/500 ML INFUS.BAG IV SCH (00:43)
[2021-08-30] MEDS: PIPERACILLIN/TAZOB 2.25 GM 2.25 GM in DEXTROSE 5%-WATER - 50 ML IVPB SCH ×3 (02:46→17:44)
[2021-08-30] MEDS: HEPARIN NA (PORCINE) 5,000 UNITS/ML 1ML VIAL SQ SCH ×3 (05:47→21:29)
[2021-08-30] MEDS: INSULIN SLIDING SCALE (NOVOLOG) 1 VIAL SQ SCH ×4 (06:42→22:03)
[2021-08-30] MEDS: PANTOPRAZOLE SODIUM 40 MG VIAL IVPUSH SCH ×2 (09:05→21:31)
[2021-08-30] MEDS: ARTIFICIAL TEARS (POLYVINYL ALCOHOL) OPTH DROPS OU SCH ×2 (09:06→21:29)
[2021-08-30 09:11] LABS: HEMATOCRIT 23.4 % (35.4-49); HEMOGLOBIN 7.3 GM/dL (11.7-16.9); MCH 32.3 pg (25.7-33.7); MCHC 31.3 g/dl (32.0-35.9); MEAN CELL VOLUME 103.3 fl (80-96); MEAN PLT VOLUME 9.7 fl (7.5-11.1); PLATELET COUNT 183 10^3/uL (134-434); RBC 2.26 M/mm3 (4.00-5.60); RDW 16.6 % (11.9-15.9); WHITE BLOOD COUNT 21.5 K/mm3 (4.0-10.0)
[2021-08-30 09:46] LABS: CHLORIDE 112 mmol/L (98-107); SODIUM 144 mmol/L (136-145)
[2021-08-30 09:49] LABS: ALBUMIN 1.7 g/dl (3.4-5.0); ANION GAP 14 MMOL/L (8-16); ANISOCYTOSIS 1+; CO2 18 mmol/L (21-32); GLUCOSE,RANDOM 165 mg/dL (74-106); MACROCYTOSIS 1+; MAGNESIUM 2.3 mg/dL (1.8-2.4)
[2021-08-30 09:52] LABS: CREATININE 4.9 mg/dL (0.55-1.3); PHOSPHOROUS 7.2 mg/dL (2.5-4.9); SGOT/AST 120 U/L (15-37); SGPT/ALT 54 U/L (13-61)
[2021-08-30 09:53] LABS: BILIRUBIN,TOTAL 0.5 mg/dL (0.2-1); TOT PROT 4.7 g/dl (6.4-8.2)
[2021-08-30 09:55] LABS: ALK PHOS 100 U/L (45-117)
[2021-08-30 09:57] LABS: CALCIUM 6.8 mg/dL (8.5-10.1)
[2021-08-30] MEDS: DEXMEDETOMIDINE IN 0.9 % NACL 400 MCG/100 ML VIAL IVPB SCH (11:09)
[2021-08-30] MEDS: VASOPRESSIN 40 UNITS/100 ML BAG IV SCH ×2 (11:11→21:28)
[2021-08-30] MEDS: SODIUM CHLORIDE 0.45% 1,000 ML IV SCH ×2 (12:50→21:28)
[2021-08-30] MEDS: SODIUM ZIRCONIUM CYCLOSILICATE (LOKELMA) 5 GM PACKET PO SCH ×2 (13:09→21:31)
[2021-08-30] MEDS: MIDAZOLAM IN 0.9 % SOD.CHLORID 100 MG/100 ML PLAST..BAG IVPB SCH (21:27)
[2021-08-30] MEDS: CHLORHEXIDINE GLUCONATE 4% CLEANSER FOR DECOLONIZATION TP SCH (21:29)
[2021-08-31] MEDS ORDERED: DEXTROSE 5%-WATER - 50 ML IVPB ONE ×2 (01:10→08:23)
[2021-08-31] MEDS ORDERED: PIPERACILLIN/TAZOBACTAM 2.25 GM VIAL IVPB ONE ×2 (01:10→08:23)
[2021-08-31] MEDS: PIPERACILLIN/TAZOB 2.25 GM 2.25 GM in DEXTROSE 5%-WATER - 50 ML IVPB SCH ×2 (01:44→09:08)
[2021-08-31] MEDS: NOREPINEPHRINE BITARTRATE 16,000 MCG in SODIUM CHLORIDE 16,000 MCG/500 ML INFUS.BAG IV SCH (01:45)
[2021-08-31] MEDS: HEPARIN NA (PORCINE) 5,000 UNITS/ML 1ML VIAL SQ SCH ×2 (06:40→14:00)
[2021-08-31] MEDS: INSULIN SLIDING SCALE (NOVOLOG) 1 VIAL SQ SCH ×3 (06:44→16:30)
[2021-08-31 07:06] LABS: HEMATOCRIT 23.6 % (35.4-49); HEMOGLOBIN 7.3 GM/dL (11.7-16.9); MCH 32.5 pg (25.7-33.7); MCHC 31.1 g/dl (32.0-35.9); MEAN CELL VOLUME 104.6 fl (80-96); MEAN PLT VOLUME 10.1 fl (7.5-11.1); PLATELET COUNT 196 10^3/uL (134-434); RBC 2.25 M/mm3 (4.00-5.60); RDW 16.9 % (11.9-15.9); WHITE BLOOD COUNT 20.9 K/mm3 (4.0-10.0)
[2021-08-31 07:19] LABS: CHLORIDE 108 mmol/L (98-107); SODIUM 139 mmol/L (136-145)
[2021-08-31 07:25] LABS: ALBUMIN 1.6 g/dl (3.4-5.0); CO2 15 mmol/L (21-32); GLUCOSE,RANDOM 177 mg/dL (74-106); MAGNESIUM 2.3 mg/dL (1.8-2.4)
[2021-08-31 07:27] LABS: SGPT/ALT 58 U/L (13-61)
[2021-08-31 07:28] LABS: CREATININE 5.7 mg/dL (0.55-1.3); SGOT/AST 103 U/L (15-37)
[2021-08-31 07:29] LABS: BILIRUBIN,TOTAL 0.6 mg/dL (0.2-1); TOT PROT 4.6 g/dl (6.4-8.2)
[2021-08-31 07:30] LABS: ALK PHOS 95 U/L (45-117)
[2021-08-31 07:59] LABS: ANION GAP 15 MMOL/L (8-16); BLOOD UREA NITROGEN 128.7 mg/dL (7-18); CALCIUM 6.9 mg/dL (8.5-10.1); PHOSPHOROUS 8.4 mg/dL (2.5-4.9)
[2021-08-31] MEDS ORDERED: FENTANYL NS IVPB 500 MCG/100 ML BAG IVPB SCH (08:00)
[2021-08-31 08:43] LABS: ANISOCYTOSIS 2+; MACROCYTOSIS 2+
[2021-08-31] MEDS ORDERED: FUROSEMIDE INJECTION 100 MG in SODIUM CHLORIDE 90 ML IVPB SCH (09:00)
[2021-08-31] MEDS: PANTOPRAZOLE SODIUM 40 MG VIAL IVPUSH SCH (09:08)
[2021-08-31] MEDS: ARTIFICIAL TEARS (POLYVINYL ALCOHOL) OPTH DROPS OU SCH (09:08)
[2021-08-31] MEDS: SODIUM ZIRCONIUM CYCLOSILICATE (LOKELMA) 5 GM PACKET PO SCH (09:08)
[2021-08-31] MEDS: POLYETHYLENE GLYCOL (HEALTHYLAX) 3350 17 GM PACKET PO SCH (09:12)
[2021-08-31] MEDS: POTASSIUM CHLORIDE 20 MEQ in AMINO ACIDS 4.25%/D5W 1,000 ML IV SCH (09:12)
[2021-08-31 09:48] LABS: ALLENS TEST POSITIVE; ARTERIAL BLD GAS O2 SATURATION 99.3 % (95-98); ARTERIAL BLOOD GAS BASE EXCESS -22.3 mmol/L (-2-2); ARTERIAL BLOOD GAS PO2 308.1 mmHg (80-100)
[2021-08-31 09:49] LABS: VENT MODE AC; VENT RATE 24
[2021-08-31 09:50] LABS: ARTERIAL BLOOD GAS pH 6.888 (7.350-7.450)
[2021-08-31] MEDS ORDERED: DEXTROSE 50%-WATER - 25 GM/50 ML VIAL IVPUSH ONE (11:00)
[2021-08-31] MEDS ORDERED: SODIUM BICARBONATE 8.4% 50 MEQ/50 ML DISP.SYRIN IVPUSH ONE (11:00)
[2021-08-31] MEDS ORDERED: CALCIUM GLUCONATE 10% - 1,000 MG/10 ML VIAL IVPB ONE (11:00)
[2021-08-31] MEDS ORDERED: INSULIN REGULAR HUMAN 100 UNITS/ML *VIAL IVPUSH ONE (11:00)
[2021-08-31] MEDS ORDERED: HYDROCORTISONE SOD SUCCINATE 100 MG/2 ML VIAL IVPB SCH (11:00)
[2021-08-31] MEDS ORDERED: DEXTROSE 50%-WATER 25 GM/50 ML DISP.SYRIN IVPUSH ONE (11:30)
[2021-08-31] MEDS ORDERED: CALCIUM GLUC IN NACL, ISO-OSM 1 GM/50 ML BAG IVPB ONE (12:00)
[2021-08-31 13:20] VITALS: TEMP 97.4
[2021-08-31] MEDS: MIDAZOLAM IN 0.9 % SOD.CHLORID 100 MG/100 ML PLAST..BAG IVPB SCH (15:08)
[2021-08-31 16:55] VITALS: BP 65/16
[2021-08-31 17:25] VITALS: PULSE 0
== END 2021-08-31 16:05 | disposition expired | DRG 870 ==
LOC: JER 20:11 → JERBED 08-20 01:25 → JICU 08-20 14:04
PROVIDERS: ADMIT Internal Medicine; ATTEND Internal Medicine Pulmonary Disease
PROC: 05HM33Z Insertion of Infusion Device into Right Internal Jugular Vein, Percutaneous Approach (ICD-10-PCS; 2021-08-20)
PROC: B543ZZA Ultrasonography of Right Jugular Veins, Guidance (ICD-10-PCS; 2021-08-20)
PROC: 30233L1 Transfusion of Nonautologous Fresh Plasma into Peripheral Vein, Percutaneous Approach (ICD-10-PCS; 2021-08-20)
PROC: 30233P1 Transfusion of Nonautologous Frozen Red Cells into Peripheral Vein, Percutaneous Approach (ICD-10-PCS; 2021-08-20)
PROC: 30233N1 Transfusion of Nonautologous Red Blood Cells into Peripheral Vein, Percutaneous Approach (ICD-10-PCS; 2021-08-21)
PROC: 5A1955Z Respiratory Ventilation, Greater than 96 Consecutive Hours (ICD-10-PCS; principal; 2021-08-27)
PROC: 0BH17EZ Insertion of Endotracheal Airway into Trachea, Via Natural or Artificial Opening (ICD-10-PCS; 2021-08-27)
PROC: 05HN33Z Insertion of Infusion Device into Left Internal Jugular Vein, Percutaneous Approach (ICD-10-PCS; 2021-08-27)
PROC: B544ZZA Ultrasonography of Left Jugular Veins, Guidance (ICD-10-PCS; 2021-08-27)
PROC: 5A12012 Performance of Cardiac Output, Single, Manual (ICD-10-PCS; 2021-08-27)
DX: A41.9 Sepsis, unspecified organism (principal); G92.8 Other toxic encephalopathy; J96.01 Acute respiratory failure with hypoxia; R65.21 Severe sepsis with septic shock; J81.0 Acute pulmonary edema; J18.9 Pneumonia, unspecified organism; N17.0 Acute kidney failure with tubular necrosis; D68.9 Coagulation defect, unspecified; J44.1 Chronic obstructive pulmonary disease with (acute) exacerbation; M62.82 Rhabdomyolysis; E87.2 Acidosis; I24.8 Other forms of acute ischemic heart disease; I47.1 Supraventricular tachycardia; I47.2 Ventricular tachycardia; J44.0 Chronic obstructive pulmonary disease with (acute) lower respiratory infection; G93.1 Anoxic brain damage, not elsewhere classified; E87.3 Alkalosis; I46.9 Cardiac arrest, cause unspecified; I12.9 Hypertensive chronic kidney disease with stage 1 through stage 4 chronic kidney disease, or unspecified chronic kidney disease; E05.90 Thyrotoxicosis, unspecified without thyrotoxic crisis or storm; N18.9 Chronic kidney disease, unspecified; D50.0 Iron deficiency anemia secondary to blood loss (chronic); I48.0 Paroxysmal atrial fibrillation; I25.10 Atherosclerotic heart disease of native coronary artery without angina pectoris; E78.5 Hyperlipidemia, unspecified; D72.829 Elevated white blood cell count, unspecified; E87.5 Hyperkalemia; F17.200 Nicotine dependence, unspecified, uncomplicated; Z95.1 Presence of aortocoronary bypass graft; E86.0 Dehydration; I95.9 Hypotension, unspecified; E87.70 Fluid overload, unspecified; E83.51 Hypocalcemia; N40.0 Benign prostatic hyperplasia without lower urinary tract symptoms; K59.00 Constipation, unspecified
CPT/HCPCS: 31500; 36415; 36430; 36600; 70450-TC; 70486-TC; 71045-TC-FY; 71250-TC; 72125-TC; 74176-TC; 76775-TC; 80048; 80051; 80053; 80061; 80307; 81003; 82140; 82247; 82248; 82272; 82550; 82553; 82570; 82607; 82746; 82803; 82962; 83540; 83550; 83605; 83735; 83880; 84100; 84132; 84300; 84439; 84443; 84481; 84484; 85025; 85027; 85045; 85610; 85730; 86850; 86900; 86901; 86922; 87040; 87070; 87086; 87186; 87205; 87899; 93005; 93010; 93306-TC; 94002; 94640; 94660; 95816; 99291; 99292; C9803-CS; G0480; J1644; J3490; P9017; P9058; U0003; U0005